=== PATIENT | male | born 1995 | race American Indian/Alaskan Native ===

== ENCOUNTER 2020-12-06 06:04 | Emergency (ER) | payer SELFPAY ==
[2020-12-06 08:14] VITALS: BP 120/71
--- NOTE | 2020-12-06 11:40 | Emergency Department Report ---
- General Chief complaint: Skin/Abscess/Foreign Body Stated complaint: CYST ON FACE/POSS DRAIN Time Seen by Provider: 12/06/20 11:36 Source: patient Mode of arrival: Ambulatory Limitations: No Limitations - History of Present Illness Initial comments: The patient was evaluated in the emergency department for symptoms described in the history of present illness. He/she was evaluated in the context of the global COVID-19 pandemic, which necessitated consideration that the patient might be at risk for infection with the virus that causes COVID-19. Institutional protocols and algorithms that pertain to the evaluation of patients at risk for COVID-19 are in a state of rapid change based on information released by regulatory bodies including the CDC and federal and state organizations. These policies and algorithms were followed during the patient's care in the emergency department. Please note that these policies, procedures and recommendations changed on a rapid basis. 25-year-old -[place] male presents to the emergency room for 1 week history of an abscess to his right jaw. Patient denies any past medical history. Reports is not allergic to any meds. He denies any trauma to his face. No fever no chills. MD complaint: abscess/boil Onset/Timin -: week(s) Severity scale (0 -10): 7 Quality: sharp Consistency: constant Worsens with: none Context: none Associated symptoms: denies other symptoms Treatments Prior to Arrival: none - Related Data Previous Rx's Medication Instructions Recorded Last Taken Type cephALEXin [Keflex] 500 mg PO Q8HR 7 Days #21 cap 12/06/20 Unknown Rx Allergies Allergy/AdvReac Type Severity Reaction Status Date / Time No Known Allergies Allergy Verified 12/06/20 08:14 Abscess Boil HPI - HPI Chief Complaint: Skin/Abscess/Foreign Body Stated Complaint: CYST ON FACE/POSS DRAIN Time Seen by Provider: 12/06/20 11:36 Home Medications: Previous Rx's Medication Instructions Recorded Last Taken Type cephALEXin [Keflex] 500 mg PO Q8HR 7 Days #21 cap 12/06/20 Unknown Rx Allergies/Adverse Reactions: Allergies Allergy/AdvReac Type Severity Reaction Status Date / Time No Known Allergies Allergy Verified 12/06/20 08:14 ED Review of Systems ROS: Stated complaint: CYST ON FACE/POSS DRAIN Other details as noted in HPI Comment: All other systems reviewed and negative ED Past Medical Hx - Medications Home Medications: Home Medications Medication Instructions Recorded Confirmed Last Taken Type cephALEXin [Keflex] 500 mg PO Q8HR 7 Days #21 cap 12/06/20 Unknown Rx ED Physical Exam - General Limitations: No Limitations ED Course Vital Signs 12/06/20 08:13 Temperature 97.8 F Pulse Rate 66 Respiratory 12 Rate Blood Pressure 120/71 [Left] O2 Sat by Pulse 100 Oximetry ED Medical Decision Making - Medical Decision Making 25-year-old -[place] male presents to the emergency room for 1 week history of an abscess to his right jaw. Patient denies any past medical history. Reports is not allergic to any meds. He denies any trauma to his face. No fever no chills. Patient be treated for cellulitis with Keflex. Patient take Tylenol ibuprofen for pain. Critical care attestation.: If time is entered above; I have spent that time in minutes in the direct care of this critically ill patient, excluding procedure time. ED Disposition Clinical Impression: Abscess of face Disposition: HOME / SELF CARE / HOMELESS Is pt being admited?: No Does the pt Need Aspirin: No Condition: Stable Instructions: Skin Abscess, [id number] Additional Instructions: Complete antibiotics as prescribed. Keep site clean and dry. Wash hands prior to touching your face. Change or mass often. Increase your fluid intake avoid sodas processed foods. In your face. Prescriptions: cephALEXin [Keflex] 500 mg PO Q8HR 7 Days #21 cap Referrals: PRIMARY CARE, [Primary Care Provider] - 3-5 Days Forms: Work/School Release Form(ED) Time of Disposition: 11:47
== END 2020-12-06 12:11 | disposition home or self-care (01) ==
LOC: ED 06:04
DX: L02.01 Cutaneous abscess of face (principal); Z79.899 Other long term (current) drug therapy
CPT/HCPCS: 99281